=== PATIENT | male | born 1975 | race Caucasian/White ===

== ENCOUNTER → 2017-01-10 | Outpatient (CLI) | payer OTHER ==
[~2017-01-10] MED LIST: DAILY VALUE1 EACH PO; FOLATE PO; IBUPROFEN PO; LORTAB 5/500 TA1 TA1 PO; PREDNISONE PO; PROTONIX PO; THIAMINE HCL100 MG PO; VICODIN 5/500 T1 TAB PO; WELLBUTRIN PO; ZITHROMAX1 G/PKT PO
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
== END | disposition home or self-care (01) ==
LOC: CMRI 16:43
DX: R20.2 Paresthesia of skin (principal); R20.0 Anesthesia of skin; G62.9 Polyneuropathy, unspecified; Z98.890 Other specified postprocedural states; M48.02 Spinal stenosis, cervical region
CPT/HCPCS: 72141